=== PATIENT | male | born 1945 | race Caucasian/White ===

== ENCOUNTER 2018-06-26 22:41 | Emergency (ER) | payer MEDICARE, OTHER ==
[2018-06-27 01:16] LABS: ADD MAN DIFF? NO
[2018-06-27 01:18] LABS: WHITE BLOOD COUNT 7.7 10^3/ul (4.8-10.8)
[2018-06-27 01:18] LABS: BASOPHILS % 0.3 % (0.0-2.0); EOSINOPHILS # 0.1 10^3/ul (0.0-0.5); EOSINOPHILS % 0.6 % (0.0-7.0); HEMATOCRIT 38.6 % (42.0-52.0); LYMPHOCYTES # 2.3 10^3/ul (0.8-2.9); LYMPHOCYTES % 29.7 % (15.0-51.0); MEAN CORPUSCULAR HEMOGLOBIN 31.5 pg (29.0-33.0); MEAN CORPUSCULAR HGB CONC 36.3 g/dl (32.0-37.0); MEAN CORPUSCULAR VOLUME 86.9 fl (82.0-101.0); MEAN PLATELET VOLUME 10.6 fl (7.4-10.4); MONOCYTE # 0.8 10^3/ul (0.3-0.9); MONOCYTES % 9.7 % (0.0-11.0); NEUTROPHIL # 4.6 10^3/ul (1.6-7.5); NEUTROPHILS % 59.3 % (39.0-77.0); PLATELET COUNT 161 10^3/UL (140-415); RED BLOOD COUNT 4.44 10^6/ul (4.70-6.10); RED CELL DISTRIBUTION WIDTH 11.4 % (11.5-14.5)
[2018-06-27 01:36] LABS: ALANINE AMINOTRANSFERASE 23 IU/L (13-69); ALBUMIN 4.4 g/dl (3.3-4.9); ALBUMIN/GLOBULIN RATIO 1.18; ALKALINE PHOSPHATASE 73 IU/L (42-121); ANION GAP 15 (5-13); ASPARTATE AMINO TRANSFERASE 19 IU/L (15-46); BILIRUBIN,INDIRECT 0.4 mg/dl (0-1.1); BILIRUBIN,TOTAL 0.4 mg/dl (0.2-1.3); BLOOD UREA NITROGEN 6 mg/dl (7-20); CALCIUM 8.7 mg/dl (8.4-10.2); CARBON DIOXIDE 23 mmol/L (21-31); CHLORIDE 86 mmol/L (97-110); CREATININE 0.46 mg/dl (0.61-1.24); GLUCOSE 104 mg/dl (70-220); LIPASE 46 U/L (23-300); SODIUM 124 mmol/L (135-144); TOTAL PROTEIN 8.1 g/dl (6.1-8.1)
[2018-06-27 01:39] LABS: ADD UMIC YES; UR ASCORBIC ACID NEGATIVE (NEGATIVE); UR BILIRUBIN (Dip) NEGATIVE (NEGATIVE); UR BLOOD (Dip) 1+ mg/dL (NEGATIVE); UR CLARITY CLEAR (CLEAR); UR COLOR YELLOW (YELLOW); UR GLUCOSE (Dip) NEGATIVE (NEGATIVE); UR KETONES (Dip) 2+ mg/dL (NEGATIVE); UR LEUKOCYTE ESTERASE (Dip) NEGATIVE Leu/ul (NEGATIVE); UR NITRITE (Dip) NEGATIVE (NEGATIVE); UR RBC 3 /HPF (0-5); UR SPECIFIC GRAVITY (Dip) 1.017 (1.003-1.030); UR TOTAL PROTEIN (Dip) NEGATIVE (NEGATIVE); UR UROBILINOGEN (Dip) NEGATIVE (NEGATIVE); UR WBC 1 /HPF (0-5)
[2018-06-27 01:47] LABS: TROPONIN-I < 0.012 ng/ml (0.000-0.120)
[2018-06-27] MEDS: morphine 4 MG/ML VIAL IV (01:54)
[2018-06-27] MEDS: ONDANSETRON 4 MG INJ IV (01:54)
== END 2018-06-27 02:45 | disposition home or self-care (01) ==
LOC: E/R 22:41
DX: K80.50 Calculus of bile duct without cholangitis or cholecystitis without obstruction (principal); R10.9 Unspecified abdominal pain
CPT/HCPCS: 36415; 71045; 76705; 80053; 81001; 83690; 84484; 85025; 93005; 96374; 96375; 99285-25

== ENCOUNTER 2018-06-28 09:03 | Inpatient (IN) | payer MEDICARE, OTHER ==
[2018-06-28] MEDS ORDERED: ONDANSETRON 4 MG INJ IV (10:00)
[2018-06-28] MEDS: ONDANSETRON 4 MG INJ IV (10:33)
[2018-06-28] MEDS: morphine 4 MG/ML VIAL IV (10:33)
[2018-06-28 10:41] LABS: ADD MAN DIFF? NO
[2018-06-28] MEDS ORDERED: morphine 2 MG INJ IV (11:00)
[2018-06-28] MEDS ORDERED: NACL 0.9% 3 ML SYG IV (11:00)
[2018-06-28 11:05] LABS: BASOPHILS % 0.2 % (0.0-2.0); EOSINOPHILS % 0.5 % (0.0-7.0); HEMATOCRIT 38.9 % (42.0-52.0); HEMOGLOBIN 14.3 g/dl (14.0-18.0); LYMPHOCYTES # 1.4 10^3/ul (0.8-2.9); LYMPHOCYTES % 22.2 % (15.0-51.0); MEAN CORPUSCULAR HEMOGLOBIN 31.1 pg (29.0-33.0); MEAN CORPUSCULAR HGB CONC 36.8 g/dl (32.0-37.0); MEAN CORPUSCULAR VOLUME 84.6 fl (82.0-101.0); MEAN PLATELET VOLUME 10.9 fl (7.4-10.4); MONOCYTE # 0.7 10^3/ul (0.3-0.9); MONOCYTES % 11.4 % (0.0-11.0); NEUTROPHIL # 4.2 10^3/ul (1.6-7.5); NEUTROPHILS % 64.9 % (39.0-77.0); PLATELET COUNT 168 10^3/UL (140-415); RED CELL DISTRIBUTION WIDTH 11.4 % (11.5-14.5)
[2018-06-28 11:05] LABS: WHITE BLOOD COUNT 6.5 10^3/ul (4.8-10.8)
[2018-06-28 11:09] LABS: ALANINE AMINOTRANSFERASE 39 IU/L (13-69); ALBUMIN 4.3 g/dl (3.3-4.9); ALBUMIN/GLOBULIN RATIO 1.19; ALKALINE PHOSPHATASE 78 IU/L (42-121); ANION GAP 15 (5-13); ASPARTATE AMINO TRANSFERASE 32 IU/L (15-46); BILIRUBIN,INDIRECT 0.3 mg/dl (0-1.1); BILIRUBIN,TOTAL 0.3 mg/dl (0.2-1.3); BLOOD UREA NITROGEN 5 mg/dl (7-20); CALCIUM 8.7 mg/dl (8.4-10.2); CARBON DIOXIDE 22 mmol/L (21-31); CHLORIDE 85 mmol/L (97-110); CREATININE 0.48 mg/dl (0.61-1.24); GLUCOSE 108 mg/dl (70-220); LIPASE 60 U/L (23-300); POTASSIUM 3.8 mmol/L (3.5-5.1); SODIUM 122 mmol/L (135-144); TOTAL PROTEIN 7.9 g/dl (6.1-8.1)
[2018-06-28] MEDS: SOD CHLORIDE 0.9% 1,000 ML IV (11:13)
[2018-06-28 11:20] LABS: ADD UMIC YES; UR ASCORBIC ACID NEGATIVE (NEGATIVE); UR BILIRUBIN (Dip) NEGATIVE (NEGATIVE); UR BLOOD (Dip) 1+ mg/dL (NEGATIVE); UR CLARITY CLEAR (CLEAR); UR COLOR YELLOW (YELLOW); UR GLUCOSE (Dip) NEGATIVE (NEGATIVE); UR KETONES (Dip) 2+ mg/dL (NEGATIVE); UR LEUKOCYTE ESTERASE (Dip) NEGATIVE Leu/ul (NEGATIVE); UR NITRITE (Dip) NEGATIVE (NEGATIVE); UR RBC 2 /HPF (0-5); UR SPECIFIC GRAVITY (Dip) 1.015 (1.003-1.030); UR TOTAL PROTEIN (Dip) NEGATIVE (NEGATIVE); UR UROBILINOGEN (Dip) 1+ mg/dL (NEGATIVE); UR WBC 0 /HPF (0-5)
[2018-06-28 11:21] LABS: TROPONIN-I < 0.012 ng/ml (0.000-0.120)
[2018-06-28 11:47] LABS: PHENYTOIN (DILANTIN) < 3.0 ug/ml (10.0-20.0)
[2018-06-28 11:57] LABS: SODIUM,URINE RANDOM 72 mmol/L (30-90)
[2018-06-28 12:36] LABS: CREATININE,URINE RANDOM 107.74 mg/dl (20-370)
[2018-06-28 12:47] LABS: FREE T4 (FREE THYROXINE) 1.36 ng/dl (0.78-2.44)
[2018-06-28 13:48] LABS: OSMOLALITY 243 mOsm/kg (280-295)
[2018-06-28 13:56] LABS: OSMOLALITY,URINE 467 mOsm/kg (250-1200)
[2018-06-28] MEDS: PHENYTOIN 1,250 MG in SOD CHLORIDE 0.9% 150 ML IV (14:09)
[2018-06-28 15:00] LABS: SODIUM 122 mmol/L (135-144)
[2018-06-28] MEDS: IOHEXOL 14.3 MG(I)/ML (ADULT) BTL PO (17:22)
[2018-06-28] MEDS: ACETAMINOPHEN 325 MG TAB PO (17:27)
[2018-06-28 18:29] LABS: SODIUM 126 mmol/L (135-144)
[2018-06-28 18:36] LABS: URIC ACID 3.6 mg/dl (3.1-7.9)
[2018-06-28] MEDS: PHENYTOIN 100 MG INJ IV (21:44)
[2018-06-28] MEDS: HYDROCODONE/APAP (5/325) TAB PO (21:54)
[2018-06-28 22:30] LABS: SODIUM 124 mmol/L (135-144)
[2018-06-29] MEDS: SOD CHLORIDE 0.9% 1,000 ML IV ×2 (04:30→06:36)
[2018-06-29] MEDS: PHENYTOIN 100 MG INJ IV ×3 (05:15→21:17)
[2018-06-29 06:13] LABS: WHITE BLOOD COUNT 7.4 10^3/ul (4.8-10.8)
[2018-06-29 06:13] LABS: ADD MAN DIFF? NO; BASOPHILS % 0.3 % (0.0-2.0); EOSINOPHILS # 0.1 10^3/ul (0.0-0.5); EOSINOPHILS % 0.7 % (0.0-7.0); HEMATOCRIT 38.5 % (42.0-52.0); HEMOGLOBIN 14.2 g/dl (14.0-18.0); LYMPHOCYTES % 26.6 % (15.0-51.0); MEAN CORPUSCULAR HEMOGLOBIN 31.8 pg (29.0-33.0); MEAN CORPUSCULAR HGB CONC 36.9 g/dl (32.0-37.0); MEAN CORPUSCULAR VOLUME 86.1 fl (82.0-101.0); MEAN PLATELET VOLUME 10.8 fl (7.4-10.4); MONOCYTES % 13.1 % (0.0-11.0); NEUTROPHIL # 4.4 10^3/ul (1.6-7.5); NEUTROPHILS % 58.8 % (39.0-77.0); PLATELET COUNT 161 10^3/UL (140-415); RED BLOOD COUNT 4.47 10^6/ul (4.70-6.10); RED CELL DISTRIBUTION WIDTH 11.7 % (11.5-14.5)
[2018-06-29 06:34] LABS: MAGNESIUM 2.1 mg/dl (1.7-2.5)
[2018-06-29 06:34] LABS: PHOSPHORUS 3.1 mg/dl (2.5-4.9)
[2018-06-29 06:39] LABS: ALANINE AMINOTRANSFERASE 39 IU/L (13-69); ALBUMIN 3.9 g/dl (3.3-4.9); ALBUMIN/GLOBULIN RATIO 1.21; ALKALINE PHOSPHATASE 80 IU/L (42-121); ANION GAP 14 (5-13); ASPARTATE AMINO TRANSFERASE 30 IU/L (15-46); BILIRUBIN,INDIRECT 0.2 mg/dl (0-1.1); BILIRUBIN,TOTAL 0.2 mg/dl (0.2-1.3); BLOOD UREA NITROGEN 5 mg/dl (7-20); CALCIUM 8.5 mg/dl (8.4-10.2); CARBON DIOXIDE 25 mmol/L (21-31); CHLORIDE 91 mmol/L (97-110); CREATININE 0.49 mg/dl (0.61-1.24); GLUCOSE 89 mg/dl (70-220); SODIUM 130 mmol/L (135-144); TOTAL PROTEIN 7.1 g/dl (6.1-8.1)
[2018-06-29 06:42] LABS: PHENYTOIN (DILANTIN) 19.6 ug/ml (10.0-20.0)
[2018-06-29] MEDS ORDERED: DESFLURANE 15 MIN (07:00)
[2018-06-29 11:16] LABS: CHOLESTEROL 187 mg/dl (100-200)
[2018-06-29 11:16] LABS: CHOL/HDL RATIO 3.6 RATIO; HDL CHOLESTEROL 51 mg/dl (31-75); LDL CHOLESTEROL,CALCULATED 119 mg/dl; TRIGLYCERIDES 84 mg/dl (0-149)
[2018-06-29 12:01] LABS: ANION GAP 16 (5-13); BLOOD UREA NITROGEN 5 mg/dl (7-20); CALCIUM 8.6 mg/dl (8.4-10.2); CARBON DIOXIDE 22 mmol/L (21-31); CHLORIDE 93 mmol/L (97-110); CREATININE 0.44 mg/dl (0.61-1.24); GLUCOSE 89 mg/dl (70-220); POTASSIUM 4.2 mmol/L (3.5-5.1); SODIUM 131 mmol/L (135-144)
[2018-06-29 12:31] LABS: PROSTATE SPECIFIC ANTIGEN 8.4 ng/ml (0.0-4.0)
[2018-06-29] MEDS ORDERED: ROPIVACAINE 0.5 % 30 ML VIAL (16:24)
[2018-06-29] MEDS ORDERED: HYDROmorphONE 1 MG/5 ML IV SYRINGE IV (16:30)
[2018-06-29] MEDS ORDERED: DIPHENHYDRAMINE 50 MG INJ IV (16:30)
[2018-06-29] MEDS ORDERED: BUPIVACAINE 0.5%/EPI (SDV) 30 ML INJ (16:40)
[2018-06-29] MEDS ORDERED: LIDOCAINE 1% (MPF) 30 ML INJ (16:40)
[2018-06-29] MEDS ORDERED: MIDAZOLAM 1 MG/ML 2 ML INJ (16:53)
[2018-06-29] MEDS ORDERED: METOCLOPRAMIDE 10 MG INJ (16:53)
[2018-06-29] MEDS ORDERED: ONDANSETRON 4 MG INJ (17:07)
[2018-06-29] MEDS ORDERED: NEOSTIGMINE 3 MG/3 ML SYRINGE (17:07)
[2018-06-29] MEDS ORDERED: CEFAZOLIN 1 GM INJ (17:07)
[2018-06-29] MEDS ORDERED: EPHEDrine 50 MG INJ (17:36)
[2018-06-29] MEDS ORDERED: PROPOFOL 20 ML (17:54)
[2018-06-29] MEDS ORDERED: ROCURONIUM 50 MG INJ ×2 (17:54)
[2018-06-29] MEDS ORDERED: GLYCOPYRROLATE 1 MG INJ (18:37)
[2018-06-29] MEDS: MEPERIDINE 25 MG INJ IV (18:57)
[2018-06-29] MEDS: ONDANSETRON 4 MG INJ IV (18:57)
[2018-06-29] MEDS: HYDROmorphONE 1 MG/5 ML IV SYRINGE IV ×4 (19:28→20:02)
[2018-06-29] MEDS: GEMFIBROZIL 600 MG TAB PO (21:16)
[2018-06-29] MEDS: morphine SULFATE/PF (2 MG/2 ML) SYG IV (22:24)
[2018-06-30 05:41] LABS: ADD MAN DIFF? NO
[2018-06-30 05:45] LABS: BASOPHILS % 0.1 % (0.0-2.0); HEMATOCRIT 39.9 % (42.0-52.0); HEMOGLOBIN 14.2 g/dl (14.0-18.0); LYMPHOCYTES # 1.1 10^3/ul (0.8-2.9); LYMPHOCYTES % 7.5 % (15.0-51.0); MEAN CORPUSCULAR HEMOGLOBIN 31.2 pg (29.0-33.0); MEAN CORPUSCULAR HGB CONC 35.6 g/dl (32.0-37.0); MEAN CORPUSCULAR VOLUME 87.7 fl (82.0-101.0); MEAN PLATELET VOLUME 11.2 fl (7.4-10.4); MONOCYTE # 1.4 10^3/ul (0.3-0.9); MONOCYTES % 10.1 % (0.0-11.0); NEUTROPHIL # 11.5 10^3/ul (1.6-7.5); NEUTROPHILS % 81.7 % (39.0-77.0); PLATELET COUNT 182 10^3/UL (140-415); RED BLOOD COUNT 4.55 10^6/ul (4.70-6.10); RED CELL DISTRIBUTION WIDTH 12.2 % (11.5-14.5)
[2018-06-30 05:45] LABS: WHITE BLOOD COUNT 14.1 10^3/ul (4.8-10.8)
[2018-06-30 06:14] LABS: PHOSPHORUS 2.8 mg/dl (2.5-4.9)
[2018-06-30 06:14] LABS: MAGNESIUM 1.9 mg/dl (1.7-2.5)
[2018-06-30 06:23] LABS: ALANINE AMINOTRANSFERASE 66 IU/L (13-69); ALBUMIN 4.1 g/dl (3.3-4.9); ALBUMIN/GLOBULIN RATIO 1.24; ALKALINE PHOSPHATASE 87 IU/L (42-121); ANION GAP 15 (5-13); ASPARTATE AMINO TRANSFERASE 81 IU/L (15-46); BILIRUBIN,INDIRECT 0.2 mg/dl (0-1.1); BILIRUBIN,TOTAL 0.2 mg/dl (0.2-1.3); BLOOD UREA NITROGEN 4 mg/dl (7-20); CALCIUM 8.4 mg/dl (8.4-10.2); CARBON DIOXIDE 19 mmol/L (21-31); CHLORIDE 96 mmol/L (97-110); CREATININE 0.46 mg/dl (0.61-1.24); GLUCOSE 117 mg/dl (70-220); POTASSIUM 3.7 mmol/L (3.5-5.1); SODIUM 130 mmol/L (135-144); TOTAL PROTEIN 7.4 g/dl (6.1-8.1)
[2018-06-30] MEDS: LEVOTHYROXINE 150 MCG TAB PO (06:50)
[2018-06-30] MEDS: PHENYTOIN 100 MG INJ IV ×3 (06:50→21:11)
[2018-06-30] MEDS: GEMFIBROZIL 600 MG TAB PO ×2 (10:31→21:11)
[2018-06-30] MEDS: HYDROCODONE/APAP (5/325) TAB PO ×2 (10:32→22:03)
[2018-06-30] MEDS: ONDANSETRON 4 MG INJ IV (13:35)
[2018-06-30] MEDS: BISACODYL (EC) 5 MG TAB PO (18:25)
[2018-06-30] MEDS: TAMSULOSIN (SR) 0.4 MG CAP PO (21:11)
[2018-06-30] MEDS: POLYETHYLENE GLYCOL 17 GM PACKET PO (21:11)
[2018-07-01 05:56] LABS: ADD MAN DIFF? NO
[2018-07-01 06:00] LABS: WHITE BLOOD COUNT 21.1 10^3/ul (4.8-10.8)
[2018-07-01 06:00] LABS: ABNORMAL IP MESSAGE 1; BASOPHIL # 0.1 10^3/ul (0.0-0.1); BASOPHILS % 0.2 % (0.0-2.0); EOSINOPHILS % 0.1 % (0.0-7.0); HEMATOCRIT 46.1 % (42.0-52.0); HEMOGLOBIN 16.5 g/dl (14.0-18.0); LYMPHOCYTES # 1.6 10^3/ul (0.8-2.9); LYMPHOCYTES % 7.5 % (15.0-51.0); MEAN CORPUSCULAR HEMOGLOBIN 31.2 pg (29.0-33.0); MEAN CORPUSCULAR HGB CONC 35.8 g/dl (32.0-37.0); MEAN CORPUSCULAR VOLUME 87.1 fl (82.0-101.0); MEAN PLATELET VOLUME 10.7 fl (7.4-10.4); MONOCYTE # 2.1 10^3/ul (0.3-0.9); MONOCYTES % 9.9 % (0.0-11.0); NEUTROPHIL # 17.2 10^3/ul (1.6-7.5); NEUTROPHILS % 81.6 % (39.0-77.0); PLATELET COUNT 214 10^3/UL (140-415); POSITIVE DIFF @See below; RED BLOOD COUNT 5.29 10^6/ul (4.70-6.10); RED CELL DISTRIBUTION WIDTH 12.6 % (11.5-14.5)
[2018-07-01] MEDS: PHENYTOIN 100 MG INJ IV ×3 (06:02→21:19)
[2018-07-01] MEDS: LEVOTHYROXINE 150 MCG TAB PO (06:02)
[2018-07-01] MEDS: HYDROCODONE/APAP (5/325) TAB PO (06:02)
[2018-07-01 06:29] LABS: ALANINE AMINOTRANSFERASE 57 IU/L (13-69); ALBUMIN 4.4 g/dl (3.3-4.9); ALBUMIN/GLOBULIN RATIO 1.12; ALKALINE PHOSPHATASE 96 IU/L (42-121); ANION GAP 16 (5-13); ASPARTATE AMINO TRANSFERASE 56 IU/L (15-46); BILIRUBIN,INDIRECT 0.3 mg/dl (0-1.1); BILIRUBIN,TOTAL 0.3 mg/dl (0.2-1.3); BLOOD UREA NITROGEN 14 mg/dl (7-20); CARBON DIOXIDE 21 mmol/L (21-31); CHLORIDE 92 mmol/L (97-110); CREATININE 1.65 mg/dl (0.61-1.24); GLUCOSE 159 mg/dl (70-220); SODIUM 129 mmol/L (135-144); TOTAL PROTEIN 8.3 g/dl (6.1-8.1)
[2018-07-01 07:50] LABS: MAGNESIUM 2.2 mg/dl (1.7-2.5)
[2018-07-01 07:50] LABS: PHOSPHORUS 3.2 mg/dl (2.5-4.9)
[2018-07-01] MEDS: ACETAMINOPHEN 325 MG TAB PO (08:53)
[2018-07-01] MEDS: GEMFIBROZIL 600 MG TAB PO ×2 (08:53→20:29)
[2018-07-01] MEDS: POLYETHYLENE GLYCOL 17 GM PACKET PO ×2 (08:54→20:29)
[2018-07-01] MEDS: SOD CHLORIDE 0.9% 1,000 ML IV ×2 (08:55→21:50)
[2018-07-01] MEDS: morphine LIQ (10 MG/5 ML) CUP PO (11:26)
[2018-07-01] MEDS: SOD CHLORIDE 0.9% 500 ML IV ×2 (11:28→18:39)
[2018-07-01 13:31] LABS: ADD MAN DIFF? NO
[2018-07-01 13:34] LABS: WHITE BLOOD COUNT 19.2 10^3/ul (4.8-10.8)
[2018-07-01 13:34] LABS: ABNORMAL IP MESSAGE 1; BASOPHIL # 0.1 10^3/ul (0.0-0.1); BASOPHILS % 0.3 % (0.0-2.0); EOSINOPHILS # 0.1 10^3/ul (0.0-0.5); EOSINOPHILS % 0.4 % (0.0-7.0); HEMATOCRIT 44.2 % (42.0-52.0); HEMOGLOBIN 15.6 g/dl (14.0-18.0); LYMPHOCYTES # 1.5 10^3/ul (0.8-2.9); LYMPHOCYTES % 7.7 % (15.0-51.0); MEAN CORPUSCULAR HEMOGLOBIN 30.9 pg (29.0-33.0); MEAN CORPUSCULAR HGB CONC 35.3 g/dl (32.0-37.0); MEAN CORPUSCULAR VOLUME 87.5 fl (82.0-101.0); MEAN PLATELET VOLUME 10.6 fl (7.4-10.4); MONOCYTE # 1.7 10^3/ul (0.3-0.9); MONOCYTES % 8.6 % (0.0-11.0); NEUTROPHIL # 15.8 10^3/ul (1.6-7.5); NEUTROPHILS % 82.3 % (39.0-77.0); PLATELET COUNT 205 10^3/UL (140-415); POSITIVE DIFF @See below; RED BLOOD COUNT 5.05 10^6/ul (4.70-6.10); RED CELL DISTRIBUTION WIDTH 12.5 % (11.5-14.5)
[2018-07-01] MEDS: PIPER-TAZO 3.375 GM IV (PMX) 100 ML IVPB ×2 (13:38→17:43)
[2018-07-01 14:30] LABS: ALANINE AMINOTRANSFERASE 62 IU/L (13-69); ALBUMIN 3.8 g/dl (3.3-4.9); ALBUMIN/GLOBULIN RATIO 1.18; ALKALINE PHOSPHATASE 78 IU/L (42-121); ANION GAP 16 (5-13); ASPARTATE AMINO TRANSFERASE 40 IU/L (15-46); BILIRUBIN,INDIRECT 0.2 mg/dl (0-1.1); BILIRUBIN,TOTAL 0.2 mg/dl (0.2-1.3); BLOOD UREA NITROGEN 18 mg/dl (7-20); CALCIUM 9.4 mg/dl (8.4-10.2); CARBON DIOXIDE 17 mmol/L (21-31); CHLORIDE 96 mmol/L (97-110); CREATININE 1.55 mg/dl (0.61-1.24); GLUCOSE 153 mg/dl (70-220); POTASSIUM 3.8 mmol/L (3.5-5.1); SODIUM 129 mmol/L (135-144)
[2018-07-01 14:34] LABS: LACTIC ACID 1.5 mmol/L (0.5-2.0)
[2018-07-01 17:34] LABS: ADD UMIC YES; UR ASCORBIC ACID NEGATIVE (NEGATIVE); UR BACTERIA FEW /HPF (NONE SEEN); UR BILIRUBIN (Dip) NEGATIVE (NEGATIVE); UR BLOOD (Dip) 1+ mg/dL (NEGATIVE); UR CLARITY CLOUDY (CLEAR); UR COLOR AMBER (YELLOW); UR GLUCOSE (Dip) NEGATIVE (NEGATIVE); UR HYALINE CAST FEW /HPF (NONE SEEN); UR KETONES (Dip) 1+ mg/dL (NEGATIVE); UR LEUKOCYTE ESTERASE (Dip) TRACE Leu/ul (NEGATIVE); UR MUCUS MODERATE /HPF (NONE SEEN); UR NITRITE (Dip) NEGATIVE (NEGATIVE); UR NONSQUAMOUS EPITHELIAL CELL 2 /HPF (NONE SEEN); UR RBC 13 /HPF (0-5); UR SPECIFIC GRAVITY (Dip) 1.035 (1.003-1.030); UR SQUAMOUS EPITHELIAL CELL FEW /HPF (FEW); UR TOTAL PROTEIN (Dip) 2+ mg/dl (NEGATIVE); UR UROBILINOGEN (Dip) NEGATIVE (NEGATIVE); UR WBC 32 /HPF (0-5)
[2018-07-01 18:10] LABS: SODIUM,URINE RANDOM 55 mmol/L (30-90)
[2018-07-01 18:10] LABS: CREATININE,URINE RANDOM 344.48 mg/dl (20-370)
[2018-07-01] MEDS: TAMSULOSIN (SR) 0.4 MG CAP PO (20:28)
[2018-07-02] MEDS: PIPER-TAZO 3.375 GM IV (PMX) 100 ML IVPB ×5 (00:02→23:29)
[2018-07-02 05:26] LABS: ADD MAN DIFF? NO
[2018-07-02 05:31] LABS: WHITE BLOOD COUNT 16.3 10^3/ul (4.8-10.8)
[2018-07-02 05:31] LABS: BASOPHILS % 0.2 % (0.0-2.0); EOSINOPHILS # 0.2 10^3/ul (0.0-0.5); EOSINOPHILS % 1.2 % (0.0-7.0); HEMATOCRIT 41.6 % (42.0-52.0); HEMOGLOBIN 14.7 g/dl (14.0-18.0); LYMPHOCYTES # 1.7 10^3/ul (0.8-2.9); LYMPHOCYTES % 10.2 % (15.0-51.0); MEAN CORPUSCULAR HEMOGLOBIN 31.4 pg (29.0-33.0); MEAN CORPUSCULAR HGB CONC 35.3 g/dl (32.0-37.0); MEAN CORPUSCULAR VOLUME 88.9 fl (82.0-101.0); MEAN PLATELET VOLUME 10.8 fl (7.4-10.4); MONOCYTE # 1.4 10^3/ul (0.3-0.9); MONOCYTES % 8.8 % (0.0-11.0); NEUTROPHIL # 12.9 10^3/ul (1.6-7.5); NEUTROPHILS % 79.1 % (39.0-77.0); PLATELET COUNT 206 10^3/UL (140-415); RED BLOOD COUNT 4.68 10^6/ul (4.70-6.10); RED CELL DISTRIBUTION WIDTH 12.9 % (11.5-14.5)
[2018-07-02] MEDS: PHENYTOIN 100 MG INJ IV ×3 (05:52→21:30)
[2018-07-02 05:55] LABS: ANION GAP 16 (5-13); BLOOD UREA NITROGEN 18 mg/dl (7-20); CALCIUM 8.8 mg/dl (8.4-10.2); CARBON DIOXIDE 19 mmol/L (21-31); CHLORIDE 98 mmol/L (97-110); CREATININE 0.88 mg/dl (0.61-1.24); GLUCOSE 119 mg/dl (70-220); MAGNESIUM 2.2 mg/dl (1.7-2.5); PHOSPHORUS 2.8 mg/dl (2.5-4.9); POTASSIUM 3.6 mmol/L (3.5-5.1); SODIUM 133 mmol/L (135-144)
[2018-07-02 05:59] LABS: PHENYTOIN (DILANTIN) 14.4 ug/ml (10.0-20.0)
[2018-07-02] MEDS: LEVOTHYROXINE 150 MCG TAB PO (07:00)
[2018-07-02] MEDS: GEMFIBROZIL 600 MG TAB PO ×2 (08:19→21:30)
[2018-07-02] MEDS: POLYETHYLENE GLYCOL 17 GM PACKET PO ×2 (08:19→21:31)
[2018-07-02] MEDS: SOD CHLORIDE 0.9% 1,000 ML IV (11:10)
[2018-07-02 15:31] LABS: CREATININE, RANDOM URINE 293 mg/dL (20-320); MICROALBUMIN 5.1 mg/dL; MICROALBUMIN/CREATININE RATIO 17 (<30)
[2018-07-02] MEDS: TAMSULOSIN (SR) 0.4 MG CAP PO (21:30)
[2018-07-03] MEDS: SOD CHLORIDE 0.9% 1,000 ML IV ×4 (00:30→19:10)
[2018-07-03] MEDS: ACETAMINOPHEN 325 MG TAB PO ×2 (04:08→09:04)
[2018-07-03] MEDS: LEVOTHYROXINE 150 MCG TAB PO (06:05)
[2018-07-03] MEDS: PIPER-TAZO 3.375 GM IV (PMX) 100 ML IVPB ×3 (06:05→17:59)
[2018-07-03] MEDS: PHENYTOIN 100 MG INJ IV ×3 (06:05→21:31)
[2018-07-03 06:06] LABS: ADD MAN DIFF? NO
[2018-07-03 06:18] LABS: WHITE BLOOD COUNT 11.4 10^3/ul (4.8-10.8)
[2018-07-03 06:18] LABS: BASOPHILS % 0.3 % (0.0-2.0); EOSINOPHILS # 0.4 10^3/ul (0.0-0.5); EOSINOPHILS % 3.7 % (0.0-7.0); HEMATOCRIT 37.9 % (42.0-52.0); HEMOGLOBIN 13.4 g/dl (14.0-18.0); LYMPHOCYTES # 1.4 10^3/ul (0.8-2.9); LYMPHOCYTES % 12.7 % (15.0-51.0); MEAN CORPUSCULAR HEMOGLOBIN 31.6 pg (29.0-33.0); MEAN CORPUSCULAR HGB CONC 35.4 g/dl (32.0-37.0); MEAN CORPUSCULAR VOLUME 89.4 fl (82.0-101.0); MEAN PLATELET VOLUME 10.2 fl (7.4-10.4); MONOCYTE # 1.4 10^3/ul (0.3-0.9); MONOCYTES % 11.9 % (0.0-11.0); NEUTROPHIL # 8.1 10^3/ul (1.6-7.5); NEUTROPHILS % 70.6 % (39.0-77.0); PLATELET COUNT 180 10^3/UL (140-415); RED BLOOD COUNT 4.24 10^6/ul (4.70-6.10); RED CELL DISTRIBUTION WIDTH 12.9 % (11.5-14.5)
[2018-07-03 06:40] LABS: MAGNESIUM 2.1 mg/dl (1.7-2.5)
[2018-07-03 06:47] LABS: PHOSPHORUS 2.1 mg/dl (2.5-4.9)
[2018-07-03 06:56] LABS: ALANINE AMINOTRANSFERASE 30 IU/L (13-69); ALBUMIN 3.1 g/dl (3.3-4.9); ALBUMIN/GLOBULIN RATIO 1.06; ALKALINE PHOSPHATASE 61 IU/L (42-121); ANION GAP 9 (5-13); ASPARTATE AMINO TRANSFERASE 17 IU/L (15-46); BILIRUBIN,INDIRECT 0.2 mg/dl (0-1.1); BILIRUBIN,TOTAL 0.2 mg/dl (0.2-1.3); BLOOD UREA NITROGEN 13 mg/dl (7-20); CALCIUM 8.5 mg/dl (8.4-10.2); CARBON DIOXIDE 25 mmol/L (21-31); CHLORIDE 99 mmol/L (97-110); CREATININE 0.58 mg/dl (0.61-1.24); GLUCOSE 116 mg/dl (70-220); POTASSIUM 3.3 mmol/L (3.5-5.1); SODIUM 133 mmol/L (135-144)
[2018-07-03] MEDS: POTASSIUM CHLORIDE (SR) 20 MEQ TAB PO (07:41)
[2018-07-03] MEDS: NEUTRA-PHOS 250 MG PACKET PO (08:00)
[2018-07-03] MEDS: POLYETHYLENE GLYCOL 17 GM PACKET PO ×2 (09:00→21:00)
[2018-07-03] MEDS: GEMFIBROZIL 600 MG TAB PO ×2 (09:04→21:31)
[2018-07-03] MEDS: ENOXAPARIN 40 MG/0.4 ML SYG SC (09:11)
[2018-07-03] MEDS: TAMSULOSIN (SR) 0.4 MG CAP PO (21:31)
[2018-07-04] MEDS: PIPER-TAZO 3.375 GM IV (PMX) 100 ML IVPB ×2 (00:14→06:03)
[2018-07-04] MEDS: HYDROCODONE/APAP (5/325) TAB PO ×2 (04:57→13:55)
[2018-07-04 05:25] LABS: ADD MAN DIFF? NO
[2018-07-04 05:29] LABS: BASOPHILS % 0.3 % (0.0-2.0); EOSINOPHILS # 0.4 10^3/ul (0.0-0.5); EOSINOPHILS % 4.5 % (0.0-7.0); HEMATOCRIT 37.2 % (42.0-52.0); HEMOGLOBIN 13.1 g/dl (14.0-18.0); LYMPHOCYTES # 2.3 10^3/ul (0.8-2.9); LYMPHOCYTES % 25.2 % (15.0-51.0); MEAN CORPUSCULAR HEMOGLOBIN 31.6 pg (29.0-33.0); MEAN CORPUSCULAR HGB CONC 35.2 g/dl (32.0-37.0); MEAN CORPUSCULAR VOLUME 89.6 fl (82.0-101.0); MEAN PLATELET VOLUME 9.9 fl (7.4-10.4); MONOCYTE # 1.1 10^3/ul (0.3-0.9); MONOCYTES % 12.1 % (0.0-11.0); NEUTROPHIL # 5.1 10^3/ul (1.6-7.5); NEUTROPHILS % 57.1 % (39.0-77.0); PLATELET COUNT 195 10^3/UL (140-415); RED BLOOD COUNT 4.15 10^6/ul (4.70-6.10); RED CELL DISTRIBUTION WIDTH 12.8 % (11.5-14.5)
[2018-07-04 05:54] LABS: ALANINE AMINOTRANSFERASE 22 IU/L (13-69); ALBUMIN 3.3 g/dl (3.3-4.9); ALBUMIN/GLOBULIN RATIO 1.03; ALKALINE PHOSPHATASE 63 IU/L (42-121); ANION GAP 8 (5-13); ASPARTATE AMINO TRANSFERASE 21 IU/L (15-46); BILIRUBIN,INDIRECT 0.2 mg/dl (0-1.1); BILIRUBIN,TOTAL 0.2 mg/dl (0.2-1.3); BLOOD UREA NITROGEN 10 mg/dl (7-20); CALCIUM 8.3 mg/dl (8.4-10.2); CARBON DIOXIDE 26 mmol/L (21-31); CHLORIDE 102 mmol/L (97-110); CREATININE 0.57 mg/dl (0.61-1.24); GLUCOSE 114 mg/dl (70-220); POTASSIUM 3.4 mmol/L (3.5-5.1); SODIUM 136 mmol/L (135-144); TOTAL PROTEIN 6.5 g/dl (6.1-8.1)
[2018-07-04] MEDS: PHENAZOPYRIDINE 200 MG TAB PO ×3 (06:03→22:04)
[2018-07-04] MEDS: PHENYTOIN 100 MG INJ IV ×3 (06:03→22:05)
[2018-07-04] MEDS: LEVOTHYROXINE 150 MCG TAB PO (06:06)
[2018-07-04 08:17] LABS: ADD UMIC YES; UR ASCORBIC ACID NEGATIVE (NEGATIVE); UR BILIRUBIN (Dip) NEGATIVE (NEGATIVE); UR BLOOD (Dip) 1+ mg/dL (NEGATIVE); UR CLARITY CLOUDY (CLEAR); UR COLOR YELLOW (YELLOW); UR GLUCOSE (Dip) NEGATIVE (NEGATIVE); UR KETONES (Dip) TRACE mg/dL (NEGATIVE); UR LEUKOCYTE ESTERASE (Dip) NEGATIVE Leu/ul (NEGATIVE); UR NITRITE (Dip) NEGATIVE (NEGATIVE); UR RBC 10 /HPF (0-5); UR SPECIFIC GRAVITY (Dip) 1.027 (1.003-1.030); UR TOTAL PROTEIN (Dip) 1+ mg/dl (NEGATIVE); UR UROBILINOGEN (Dip) NEGATIVE (NEGATIVE); UR WBC 9 /HPF (0-5)
[2018-07-04] MEDS: POLYETHYLENE GLYCOL 17 GM PACKET PO (09:00)
[2018-07-04] MEDS: POTASSIUM CHLORIDE (SR) 20 MEQ TAB PO (09:03)
[2018-07-04] MEDS: NEUTRA-PHOS 250 MG PACKET PO (09:04)
[2018-07-04] MEDS: GEMFIBROZIL 600 MG TAB PO ×2 (09:04→22:04)
[2018-07-04] MEDS: ENOXAPARIN 40 MG/0.4 ML SYG SC (09:17)
[2018-07-04] MEDS: ACETAMINOPHEN 325 MG TAB PO (09:20)
[2018-07-04] MEDS: SACCHAROMYCES BOULARDII 250 MG CAP PO ×2 (13:37→22:04)
[2018-07-04] MEDS: TAMSULOSIN (SR) 0.4 MG CAP PO ×2 (13:37→22:04)
[2018-07-05 06:21] LABS: ADD MAN DIFF? NO
[2018-07-05] MEDS: PHENYTOIN 100 MG INJ IV ×2 (06:22→13:14)
[2018-07-05] MEDS: LEVOTHYROXINE 150 MCG TAB PO (06:22)
[2018-07-05 06:30] LABS: WHITE BLOOD COUNT 9.1 10^3/ul (4.8-10.8)
[2018-07-05 06:30] LABS: BASOPHILS % 0.3 % (0.0-2.0); EOSINOPHILS # 0.3 10^3/ul (0.0-0.5); EOSINOPHILS % 3.7 % (0.0-7.0); HEMOGLOBIN 12.6 g/dl (14.0-18.0); LYMPHOCYTES # 2.1 10^3/ul (0.8-2.9); LYMPHOCYTES % 23.1 % (15.0-51.0); MEAN CORPUSCULAR HEMOGLOBIN 31.5 pg (29.0-33.0); MEAN PLATELET VOLUME 10.1 fl (7.4-10.4); MONOCYTES % 10.9 % (0.0-11.0); NEUTROPHIL # 5.6 10^3/ul (1.6-7.5); NEUTROPHILS % 61.2 % (39.0-77.0); PLATELET COUNT 209 10^3/UL (140-415); RED CELL DISTRIBUTION WIDTH 12.4 % (11.5-14.5)
[2018-07-05 06:53] LABS: ANION GAP 11 (5-13); BLOOD UREA NITROGEN 5 mg/dl (7-20); CARBON DIOXIDE 28 mmol/L (21-31); CHLORIDE 95 mmol/L (97-110); CREATININE 0.44 mg/dl (0.61-1.24); GLUCOSE 95 mg/dl (70-220); MAGNESIUM 1.9 mg/dl (1.7-2.5); PHOSPHORUS 2.2 mg/dl (2.5-4.9); POTASSIUM 3.6 mmol/L (3.5-5.1); SODIUM 134 mmol/L (135-144)
[2018-07-05] MEDS: NEUTRA-PHOS 250 MG PACKET PO (09:05)
[2018-07-05] MEDS: PHENAZOPYRIDINE 200 MG TAB PO ×2 (09:05→13:10)
[2018-07-05] MEDS: GEMFIBROZIL 600 MG TAB PO (09:05)
[2018-07-05] MEDS: TAMSULOSIN (SR) 0.4 MG CAP PO (09:06)
[2018-07-05] MEDS: SACCHAROMYCES BOULARDII 250 MG CAP PO (09:06)
[2018-07-05] MEDS: ENOXAPARIN 40 MG/0.4 ML SYG SC (09:09)
[2018-07-05] MEDS: ACETAMINOPHEN 325 MG TAB PO (11:53)
== END 2018-07-05 18:50 | disposition home health service (06) | DRG 418 ==
LOC: E/R 09:03 → 2NE 09:55
PROC: 0FT44ZZ Resection of Gallbladder, Percutaneous Endoscopic Approach (ICD-10-PCS; principal; 2018-06-29 16:00)
PROC: 0FB04ZX Excision of Liver, Percutaneous Endoscopic Approach, Diagnostic (ICD-10-PCS; 2018-06-29 16:00)
DX: K80.00 Calculus of gallbladder with acute cholecystitis without obstruction (principal); E22.2 Syndrome of inappropriate secretion of antidiuretic hormone; N17.9 Acute kidney failure, unspecified; K56.7 Ileus, unspecified; R65.10 Systemic inflammatory response syndrome (SIRS) of non-infectious origin without acute organ dysfunction; G40.909 Epilepsy, unspecified, not intractable, without status epilepticus; E03.9 Hypothyroidism, unspecified; E78.5 Hyperlipidemia, unspecified; N40.0 Benign prostatic hyperplasia without lower urinary tract symptoms; K76.9 Liver disease, unspecified
CPT/HCPCS: 36415; 71045; 74176; 76705; 78226; 80048; 80053; 80061; 80185; 81001; 81003; 82043; 82533; 83605; 83690; 83735; 83930; 83935; 84100; 84153; 84154; 84155; 84295; 84300; 84439; 84443; 84484; 84560; 85025; 87045; 87086; 88304; 88307; 88313; 93005; 96374; 96375; 99285-25

== ENCOUNTER 2018-07-08 07:10 | Emergency (ER) | payer MEDICARE, OTHER ==
[2018-07-08] MEDS: SOD CHLORIDE 0.9% 100 ML (07:49)
[2018-07-08] MEDS: IODIXANOL LOCM 100 ML BTL (07:49)
[2018-07-08 08:26] LABS: ADD MAN DIFF? NO
[2018-07-08] MEDS: ONDANSETRON 4 MG INJ IV ×3 (08:28→09:36)
[2018-07-08] MEDS: morphine 4 MG/ML VIAL IV (08:28)
[2018-07-08 08:41] LABS: WHITE BLOOD COUNT 9.1 10^3/ul (4.8-10.8)
[2018-07-08 08:41] LABS: BASOPHILS % 0.4 % (0.0-2.0); EOSINOPHILS # 0.2 10^3/ul (0.0-0.5); EOSINOPHILS % 2.4 % (0.0-7.0); HEMATOCRIT 37.1 % (42.0-52.0); HEMOGLOBIN 12.7 g/dl (14.0-18.0); LYMPHOCYTES # 2.1 10^3/ul (0.8-2.9); MEAN CORPUSCULAR HEMOGLOBIN 31.4 pg (29.0-33.0); MEAN CORPUSCULAR HGB CONC 34.2 g/dl (32.0-37.0); MEAN CORPUSCULAR VOLUME 91.6 fl (82.0-101.0); MEAN PLATELET VOLUME 10.1 fl (7.4-10.4); MONOCYTE # 1.3 10^3/ul (0.3-0.9); MONOCYTES % 13.9 % (0.0-11.0); NEUTROPHIL # 5.2 10^3/ul (1.6-7.5); NEUTROPHILS % 57.7 % (39.0-77.0); PLATELET COUNT 290 10^3/UL (140-415); RED BLOOD COUNT 4.05 10^6/ul (4.70-6.10); RED CELL DISTRIBUTION WIDTH 12.6 % (11.5-14.5)
[2018-07-08 08:50] LABS: ALANINE AMINOTRANSFERASE 43 IU/L (13-69); ALBUMIN 3.5 g/dl (3.3-4.9); ALBUMIN/GLOBULIN RATIO 1.06; ALKALINE PHOSPHATASE 62 IU/L (42-121); AMYLASE 71 U/L (11-123); ANION GAP 12 (5-13); ASPARTATE AMINO TRANSFERASE 49 IU/L (15-46); BILIRUBIN,INDIRECT 0.4 mg/dl (0-1.1); BILIRUBIN,TOTAL 0.4 mg/dl (0.2-1.3); BLOOD UREA NITROGEN 5 mg/dl (7-20); CALCIUM 8.5 mg/dl (8.4-10.2); CARBON DIOXIDE 28 mmol/L (21-31); CHLORIDE 93 mmol/L (97-110); CREATININE 0.49 mg/dl (0.61-1.24); GLUCOSE 93 mg/dl (70-220); LIPASE 99 U/L (23-300); SODIUM 133 mmol/L (135-144); TOTAL PROTEIN 6.8 g/dl (6.1-8.1)
[2018-07-08 08:54] LABS: INR 0.96; PROTIME 12.9 Sec (11.9-14.9)
[2018-07-08 08:55] LABS: ADD UMIC YES; PARTIAL THROMBOPLASTIN TIME 33.9 Sec (23.0-35.0); UR ASCORBIC ACID NEGATIVE (NEGATIVE); UR BACTERIA FEW /HPF (NONE SEEN); UR BILIRUBIN (Dip) NEGATIVE (NEGATIVE); UR BLOOD (Dip) NEGATIVE (NEGATIVE); UR CLARITY CLEAR (CLEAR); UR COLOR AMBER (YELLOW); UR GLUCOSE (Dip) NEGATIVE (NEGATIVE); UR KETONES (Dip) 1+ mg/dL (NEGATIVE); UR LEUKOCYTE ESTERASE (Dip) NEGATIVE Leu/ul (NEGATIVE); UR MUCUS MODERATE /HPF (NONE SEEN); UR NITRITE (Dip) POSITIVE (NEGATIVE); UR RBC 3 /HPF (0-5); UR SPECIFIC GRAVITY (Dip) > 1.060 (1.003-1.030); UR TOTAL PROTEIN (Dip) NEGATIVE (NEGATIVE); UR UROBILINOGEN (Dip) 2+ mg/dL (NEGATIVE); UR WBC 1 /HPF (0-5)
[2018-07-08 09:02] LABS: TROPONIN-I < 0.012 ng/ml (0.000-0.120)
[2018-07-08] MEDS: POTASSIUM CHLORIDE (SR) 20 MEQ TAB PO (09:21)
[2018-07-08] MEDS: HYDROmorphONE 1 MG/ML SYG IV ×2 (09:26→09:36)
== END 2018-07-08 10:28 | disposition home or self-care (01) ==
LOC: E/R 07:10
DX: G89.18 Other acute postprocedural pain (principal); E03.9 Hypothyroidism, unspecified; I10 Essential (primary) hypertension; R40.2252 Coma scale, best verbal response, oriented, at arrival to emergency department; R40.2362 Coma scale, best motor response, obeys commands, at arrival to emergency department; R40.2142 Coma scale, eyes open, spontaneous, at arrival to emergency department; R10.9 Unspecified abdominal pain
CPT/HCPCS: 74177; 80053; 81001; 82150; 83690; 84484; 85025; 85610; 85730; 87086; 93005; 96374; 96375; 96376; 99285-25

== ENCOUNTER 2018-08-06 10:42 | Observation (INO) | payer MEDICARE, OTHER ==
[2018-08-06] MEDS: CEFTRIAXONE 1 GM/NS 50 ML IVPB (08:00)
[2018-08-06] MEDS ORDERED: CEFAZOLIN 1 GM INJ (12:11)
[2018-08-06] MEDS ORDERED: ROCURONIUM 50 MG INJ (12:11)
[2018-08-06] MEDS ORDERED: MIDAZOLAM 1 MG/ML 2 ML INJ (12:11)
[2018-08-06] MEDS ORDERED: FENTAnyl 50 MCG/ML VIAL (12:11)
[2018-08-06] MEDS ORDERED: PROPOFOL 20 ML (12:11)
[2018-08-06] MEDS ORDERED: ONDANSETRON 4 MG INJ (12:48)
[2018-08-06] MEDS ORDERED: METOCLOPRAMIDE 10 MG INJ (12:48)
[2018-08-06] MEDS ORDERED: DEXAMETHASONE 4 MG/ML 5 ML INJ (12:48)
[2018-08-06] MEDS ORDERED: PHENYLephrine 10 MG INJ (13:31)
[2018-08-06] MEDS ORDERED: GLYCOPYRROLATE 0.4 MG INJ (14:21)
[2018-08-06] MEDS ORDERED: NEOSTIGMINE 3 MG/3 ML SYRINGE (14:21)
[2018-08-06] MEDS ORDERED: HYDROmorphONE 1 MG/5 ML IV SYRINGE IV ×3 (15:29→15:30)
[2018-08-06] MEDS ORDERED: ONDANSETRON 4 MG INJ IV ×2 (15:30→17:00)
[2018-08-06] MEDS ORDERED: FENTAnyl 50 MCG/ML VIAL IV ×3 (15:30)
[2018-08-06] MEDS: HYDROmorphONE 1 MG/5 ML IV SYRINGE IV ×2 (15:33→15:59)
[2018-08-06] MEDS ORDERED: morphine 2 MG INJ IV (17:00)
[2018-08-06] MEDS ORDERED: MELATONIN 5 MG TABLET PO (17:00)
[2018-08-06] MEDS ORDERED: NACL 0.9% 3 ML SYG IV ×2 (17:00)
[2018-08-06] MEDS ORDERED: ACETAMINOPHEN 325 MG TAB PO (17:00)
[2018-08-06] MEDS ORDERED: SENNA TAB PO (17:00)
[2018-08-06] MEDS: DEXTROSE 5%-0.45% NACL 1,000 ML IV (17:23)
[2018-08-06] MEDS: HYDROCODONE/APAP (5/325) TAB PO (19:03)
[2018-08-06] MEDS: PHENYTOIN 100 MG CAP PO (20:37)
[2018-08-06] MEDS: GEMFIBROZIL 600 MG TAB PO (20:37)
[2018-08-06] MEDS: SACCHAROMYCES BOULARDII 250 MG CAP PO (20:37)
[2018-08-06] MEDS ORDERED: PHENYTOIN 100 MG PO (21:00)
[2018-08-07] MEDS: HYDROCODONE/APAP (5/325) TAB PO (04:13)
[2018-08-07 05:28] LABS: ADD MAN DIFF? NO
[2018-08-07 05:29] LABS: BASOPHILS % 0.4 % (0.0-2.0); EOSINOPHILS # 0.1 10^3/ul (0.0-0.5); EOSINOPHILS % 0.9 % (0.0-7.0); HEMATOCRIT 34.6 % (42.0-52.0); HEMOGLOBIN 11.1 g/dl (14.0-18.0); LYMPHOCYTES # 3.4 10^3/ul (0.8-2.9); LYMPHOCYTES % 32.2 % (15.0-51.0); MEAN CORPUSCULAR HEMOGLOBIN 30.7 pg (29.0-33.0); MEAN CORPUSCULAR HGB CONC 32.1 g/dl (32.0-37.0); MEAN CORPUSCULAR VOLUME 95.8 fl (82.0-101.0); MEAN PLATELET VOLUME 10.1 fl (7.4-10.4); MONOCYTE # 1.1 10^3/ul (0.3-0.9); MONOCYTES % 10.2 % (0.0-11.0); NEUTROPHIL # 5.9 10^3/ul (1.6-7.5); NEUTROPHILS % 55.8 % (39.0-77.0); PLATELET COUNT 328 10^3/UL (140-415); RED BLOOD COUNT 3.61 10^6/ul (4.70-6.10); RED CELL DISTRIBUTION WIDTH 13.6 % (11.5-14.5)
[2018-08-07 05:29] LABS: WHITE BLOOD COUNT 10.6 10^3/ul (4.8-10.8)
[2018-08-07 07:03] LABS: HEMOGLOBIN A1C 5.4 % (0-5.9)
[2018-08-07] MEDS: PHENYTOIN 100 MG CAP PO ×2 (09:57→14:06)
[2018-08-07] MEDS: SACCHAROMYCES BOULARDII 250 MG CAP PO (09:57)
[2018-08-07] MEDS: GEMFIBROZIL 600 MG TAB PO (09:57)
[2018-08-07] MEDS: LEVOTHYROXINE 150 MCG TAB PO (09:57)
[2018-08-07] MEDS: DEXTROSE 5%-0.45% NACL 1,000 ML IV (10:55)
== END 2018-08-07 14:38 | disposition home or self-care (01) ==
LOC: SDS 10:42 → REC 14:58 → MS1 16:30
PROVIDERS: Urology
DX: N40.1 Benign prostatic hyperplasia with lower urinary tract symptoms (principal); R33.8 Other retention of urine; G40.909 Epilepsy, unspecified, not intractable, without status epilepticus; E03.9 Hypothyroidism, unspecified
CPT/HCPCS: 52601; 83036; 85025; 88305

== ENCOUNTER 2019-02-13 09:15 | Emergency (ER) | payer MEDICARE, OTHER ==
[2019-02-13] MEDS: ACETAMINOPHEN 500 MG TAB PO (09:53)
== END 2019-02-13 11:14 | disposition home or self-care (01) ==
LOC: E/R 09:15
DX: R51 Headache (principal); I10 Essential (primary) hypertension; E03.9 Hypothyroidism, unspecified; R40.2142 Coma scale, eyes open, spontaneous, at arrival to emergency department; R40.2252 Coma scale, best verbal response, oriented, at arrival to emergency department; R40.2362 Coma scale, best motor response, obeys commands, at arrival to emergency department
CPT/HCPCS: 70450; 99284-25

== ENCOUNTER 2019-02-18 19:54 | Inpatient (IN) | payer MEDICARE, OTHER ==
[2019-02-18 20:28] LABS: ADD MAN DIFF? NO
[2019-02-18 20:29] LABS: BASOPHILS % 0.2 % (0.0-2.0); EOSINOPHILS % 0.3 % (0.0-7.0); HEMATOCRIT 36.8 % (42.0-52.0); LYMPHOCYTES # 2.6 10^3/ul (0.8-2.9); LYMPHOCYTES % 27.4 % (15.0-51.0); MEAN CORPUSCULAR HEMOGLOBIN 31.5 pg (29.0-33.0); MEAN CORPUSCULAR HGB CONC 35.3 g/dl (32.0-37.0); MEAN CORPUSCULAR VOLUME 89.1 fl (82.0-101.0); MEAN PLATELET VOLUME 9.7 fl (7.4-10.4); MONOCYTE # 0.9 10^3/ul (0.3-0.9); MONOCYTES % 9.8 % (0.0-11.0); NEUTROPHIL # 5.8 10^3/ul (1.6-7.5); NEUTROPHILS % 61.8 % (39.0-77.0); PLATELET COUNT 236 10^3/UL (140-415); RED BLOOD COUNT 4.13 10^6/ul (4.70-6.10); RED CELL DISTRIBUTION WIDTH 12.5 % (11.5-14.5)
[2019-02-18 20:29] LABS: WHITE BLOOD COUNT 9.4 10^3/ul (4.8-10.8)
[2019-02-18] MEDS: SOD CHLORIDE 0.9% 500 ML IV (20:38)
[2019-02-18 20:47] LABS: ALANINE AMINOTRANSFERASE 21 IU/L (13-69); ALBUMIN 4.1 g/dl (3.3-4.9); ALBUMIN/GLOBULIN RATIO 1.13; ALKALINE PHOSPHATASE 84 IU/L (42-121); ANION GAP 9 (5-13); ASPARTATE AMINO TRANSFERASE 19 IU/L (15-46); BILIRUBIN,INDIRECT 0.3 mg/dl (0-1.1); BILIRUBIN,TOTAL 0.3 mg/dl (0.2-1.3); BLOOD UREA NITROGEN 5 mg/dl (7-20); CALCIUM 8.9 mg/dl (8.4-10.2); CARBON DIOXIDE 25 mmol/L (21-31); CHLORIDE 90 mmol/L (97-110); CREATININE 0.53 mg/dl (0.61-1.24); GLUCOSE 109 mg/dl (70-220); POTASSIUM 4.1 mmol/L (3.5-5.1); SODIUM 124 mmol/L (135-144); TOTAL PROTEIN 7.7 g/dl (6.1-8.1)
[2019-02-18 20:58] LABS: ADD UMIC YES; UR ASCORBIC ACID NEGATIVE (NEGATIVE); UR BILIRUBIN (Dip) NEGATIVE (NEGATIVE); UR BLOOD (Dip) 1+ mg/dL (NEGATIVE); UR CLARITY CLEAR (CLEAR); UR COLOR STRAW (YELLOW); UR GLUCOSE (Dip) NEGATIVE (NEGATIVE); UR KETONES (Dip) 1+ mg/dL (NEGATIVE); UR LEUKOCYTE ESTERASE (Dip) NEGATIVE Leu/ul (NEGATIVE); UR NITRITE (Dip) NEGATIVE (NEGATIVE); UR RBC 2 /HPF (0-5); UR SPECIFIC GRAVITY (Dip) 1.006 (1.003-1.030); UR TOTAL PROTEIN (Dip) NEGATIVE (NEGATIVE); UR UROBILINOGEN (Dip) NEGATIVE (NEGATIVE); UR WBC 2 /HPF (0-5)
[2019-02-18] MEDS ORDERED: DOCUSATE SODIUM 100 MG CAP PO (22:00)
[2019-02-18] MEDS ORDERED: ONDANSETRON 4 MG INJ IV (22:00)
[2019-02-18] MEDS ORDERED: BISACODYL (EC) 5 MG TAB PO (22:00)
[2019-02-18] MEDS ORDERED: ACETAMINOPHEN 325 MG TAB PO ×2 (22:00)
[2019-02-18] MEDS ORDERED: NACL 0.9% 3 ML SYG IV (22:00)
[2019-02-18 22:20] LABS: OSMOLALITY 252 mOsm/kg (280-295)
[2019-02-18 22:21] LABS: OSMOLALITY,URINE 252 mOsm/kg (250-1200)
[2019-02-18 22:23] LABS: SODIUM,URINE RANDOM 45 mmol/L (30-90)
[2019-02-18] MEDS: SOD CHLORIDE 0.9% 1,000 ML IV (22:39)
[2019-02-19 01:19] LABS: ANION GAP 6 (5-13); BLOOD UREA NITROGEN 4 mg/dl (7-20); CALCIUM 8.7 mg/dl (8.4-10.2); CARBON DIOXIDE 26 mmol/L (21-31); CHLORIDE 96 mmol/L (97-110); CREATININE 0.51 mg/dl (0.61-1.24); GLUCOSE 122 mg/dl (70-220); POTASSIUM 3.7 mmol/L (3.5-5.1); SODIUM 128 mmol/L (135-144)
[2019-02-19] MEDS: SODIUM CHLORIDE 0.45% 500 ML BAG IV* (03:00)
[2019-02-19 05:22] LABS: ADD MAN DIFF? NO
[2019-02-19 05:24] LABS: BASOPHILS % 0.3 % (0.0-2.0); EOSINOPHILS # 0.1 10^3/ul (0.0-0.5); EOSINOPHILS % 0.8 % (0.0-7.0); HEMATOCRIT 36.8 % (42.0-52.0); HEMOGLOBIN 12.8 g/dl (14.0-18.0); LYMPHOCYTES # 2.4 10^3/ul (0.8-2.9); MEAN CORPUSCULAR HEMOGLOBIN 31.2 pg (29.0-33.0); MEAN CORPUSCULAR HGB CONC 34.8 g/dl (32.0-37.0); MEAN CORPUSCULAR VOLUME 89.8 fl (82.0-101.0); MONOCYTE # 0.8 10^3/ul (0.3-0.9); MONOCYTES % 11.2 % (0.0-11.0); NEUTROPHIL # 3.9 10^3/ul (1.6-7.5); NEUTROPHILS % 54.3 % (39.0-77.0); PLATELET COUNT 243 10^3/UL (140-415); RED CELL DISTRIBUTION WIDTH 12.5 % (11.5-14.5)
[2019-02-19 05:24] LABS: WHITE BLOOD COUNT 7.1 10^3/ul (4.8-10.8)
[2019-02-19 05:56] LABS: ANION GAP 7 (5-13); BLOOD UREA NITROGEN 5 mg/dl (7-20); CALCIUM 8.6 mg/dl (8.4-10.2); CARBON DIOXIDE 24 mmol/L (21-31); CHLORIDE 98 mmol/L (97-110); CREATININE 0.54 mg/dl (0.61-1.24); GLUCOSE 92 mg/dl (70-220); SODIUM 129 mmol/L (135-144)
[2019-02-19 05:57] LABS: MAGNESIUM 2.2 mg/dl (1.7-2.5)
[2019-02-19 05:57] LABS: CHOL/HDL RATIO 3.8 RATIO; CHOLESTEROL 173 mg/dl (100-200); HDL CHOLESTEROL 45 mg/dl (31-75); LDL CHOLESTEROL,CALCULATED 111 mg/dl; TRIGLYCERIDES 86 mg/dl (0-149)
[2019-02-19] MEDS: LEVOTHYROXINE 125 MCG TAB PO (06:20)
[2019-02-19 06:35] LABS: HEMOGLOBIN A1C 5.1 % (0-5.9)
[2019-02-19 06:36] LABS: PHENYTOIN (DILANTIN) 7.2 ug/ml (10.0-20.0)
[2019-02-19] MEDS: PHENYTOIN 100 MG CAP PO ×3 (08:51→20:46)
[2019-02-19] MEDS: GEMFIBROZIL 600 MG TAB PO ×2 (08:51→20:46)
[2019-02-19 09:21] LABS: ANION GAP 9 (5-13); BLOOD UREA NITROGEN 4 mg/dl (7-20); CALCIUM 8.9 mg/dl (8.4-10.2); CARBON DIOXIDE 23 mmol/L (21-31); CHLORIDE 98 mmol/L (97-110); CREATININE 0.56 mg/dl (0.61-1.24); GLUCOSE 101 mg/dl (70-220); POTASSIUM 4.1 mmol/L (3.5-5.1); SODIUM 130 mmol/L (135-144)
[2019-02-19 12:52] LABS: ANION GAP 11 (5-13); BLOOD UREA NITROGEN 5 mg/dl (7-20); CALCIUM 8.8 mg/dl (8.4-10.2); CARBON DIOXIDE 23 mmol/L (21-31); CHLORIDE 97 mmol/L (97-110); CREATININE 0.53 mg/dl (0.61-1.24); GLUCOSE 112 mg/dl (70-220); POTASSIUM 3.9 mmol/L (3.5-5.1); SODIUM 131 mmol/L (135-144)
[2019-02-19] MEDS: PHENYTOIN 100 MG INJ IV (13:48)
[2019-02-19 16:50] LABS: OSMOLALITY,URINE 456 mOsm/kg (250-1200)
[2019-02-19 19:44] LABS: ANION GAP 8 (5-13); BLOOD UREA NITROGEN 6 mg/dl (7-20); CALCIUM 8.5 mg/dl (8.4-10.2); CARBON DIOXIDE 24 mmol/L (21-31); CHLORIDE 95 mmol/L (97-110); CREATININE 0.55 mg/dl (0.61-1.24); GLUCOSE 121 mg/dl (70-220); SODIUM 127 mmol/L (135-144)
[2019-02-20 05:21] LABS: ADD MAN DIFF? NO
[2019-02-20 05:32] LABS: WHITE BLOOD COUNT 8.8 10^3/ul (4.8-10.8)
[2019-02-20 05:32] LABS: BASOPHILS % 0.3 % (0.0-2.0); EOSINOPHILS # 0.1 10^3/ul (0.0-0.5); EOSINOPHILS % 1.1 % (0.0-7.0); HEMATOCRIT 37.8 % (42.0-52.0); HEMOGLOBIN 12.9 g/dl (14.0-18.0); LYMPHOCYTES % 34.5 % (15.0-51.0); MEAN CORPUSCULAR HEMOGLOBIN 31.3 pg (29.0-33.0); MEAN CORPUSCULAR HGB CONC 34.1 g/dl (32.0-37.0); MEAN CORPUSCULAR VOLUME 91.7 fl (82.0-101.0); MONOCYTES % 10.9 % (0.0-11.0); NEUTROPHIL # 4.6 10^3/ul (1.6-7.5); NEUTROPHILS % 52.5 % (39.0-77.0); PLATELET COUNT 235 10^3/UL (140-415); RED BLOOD COUNT 4.12 10^6/ul (4.70-6.10); RED CELL DISTRIBUTION WIDTH 13.1 % (11.5-14.5)
[2019-02-20 05:50] LABS: ANION GAP 6 (5-13); BLOOD UREA NITROGEN 5 mg/dl (7-20); CALCIUM 8.8 mg/dl (8.4-10.2); CARBON DIOXIDE 26 mmol/L (21-31); CHLORIDE 96 mmol/L (97-110); CREATININE 0.54 mg/dl (0.61-1.24); GLUCOSE 88 mg/dl (70-220); MAGNESIUM 2.1 mg/dl (1.7-2.5); PHOSPHORUS 3.1 mg/dl (2.5-4.9); POTASSIUM 4.4 mmol/L (3.5-5.1); SODIUM 128 mmol/L (135-144)
[2019-02-20] MEDS: LEVOTHYROXINE 125 MCG TAB PO (06:17)
[2019-02-20 06:40] LABS: PHENYTOIN (DILANTIN) 3.3 ug/ml (10.0-20.0)
[2019-02-20] MEDS: PHENYTOIN 100 MG CAP PO ×3 (09:15→21:06)
[2019-02-20] MEDS: GEMFIBROZIL 600 MG TAB PO ×2 (09:15→21:06)
[2019-02-20 12:20] LABS: SODIUM 125 mmol/L (135-144)
[2019-02-20 12:26] LABS: PHENYTOIN (DILANTIN) 8.4 ug/ml (10.0-20.0)
[2019-02-20] MEDS: SODIUM CHLORIDE 1 GM TAB PO ×2 (14:49→21:07)
[2019-02-20] MEDS: PHENYTOIN 100 MG INJ IV (16:04)
[2019-02-20 18:36] LABS: SODIUM 126 mmol/L (135-144)
[2019-02-20] MEDS: ONDANSETRON 4 MG INJ IV (21:56)
[2019-02-20 23:25] LABS: SODIUM 126 mmol/L (135-144)
[2019-02-21 01:50] LABS: ADD MAN DIFF? NO
[2019-02-21 01:52] LABS: BASOPHILS % 0.2 % (0.0-2.0); EOSINOPHILS # 0.1 10^3/ul (0.0-0.5); EOSINOPHILS % 0.8 % (0.0-7.0); HEMATOCRIT 38.4 % (42.0-52.0); HEMOGLOBIN 13.1 g/dl (14.0-18.0); LYMPHOCYTES # 3.1 10^3/ul (0.8-2.9); LYMPHOCYTES % 37.7 % (15.0-51.0); MEAN CORPUSCULAR HEMOGLOBIN 30.8 pg (29.0-33.0); MEAN CORPUSCULAR HGB CONC 34.1 g/dl (32.0-37.0); MEAN CORPUSCULAR VOLUME 90.1 fl (82.0-101.0); MEAN PLATELET VOLUME 9.6 fl (7.4-10.4); MONOCYTE # 0.9 10^3/ul (0.3-0.9); MONOCYTES % 10.6 % (0.0-11.0); NEUTROPHIL # 4.1 10^3/ul (1.6-7.5); NEUTROPHILS % 49.9 % (39.0-77.0); PLATELET COUNT 247 10^3/UL (140-415); RED BLOOD COUNT 4.26 10^6/ul (4.70-6.10)
[2019-02-21 01:52] LABS: WHITE BLOOD COUNT 8.2 10^3/ul (4.8-10.8)
[2019-02-21 02:11] LABS: SODIUM 128 mmol/L (135-144)
[2019-02-21 02:14] LABS: ANION GAP 8 (5-13); BLOOD UREA NITROGEN 6 mg/dl (7-20); CALCIUM 8.9 mg/dl (8.4-10.2); CARBON DIOXIDE 24 mmol/L (21-31); CHLORIDE 95 mmol/L (97-110); CREATININE 0.55 mg/dl (0.61-1.24); GLUCOSE 95 mg/dl (70-220); PHOSPHORUS 3.5 mg/dl (2.5-4.9); POTASSIUM 4.4 mmol/L (3.5-5.1); SODIUM 127 mmol/L (135-144)
[2019-02-21] MEDS: LEVOTHYROXINE 125 MCG TAB PO (06:39)
[2019-02-21] MEDS: SODIUM CHLORIDE 1 GM TAB PO ×3 (09:19→21:34)
[2019-02-21] MEDS: GEMFIBROZIL 600 MG TAB PO ×2 (09:19→21:34)
[2019-02-21] MEDS: DEMECLOCYCLINE 150 MG TAB PO ×2 (09:20→21:34)
[2019-02-21] MEDS: PHENYTOIN 100 MG CAP PO ×3 (09:20→21:34)
[2019-02-21] MEDS: ONDANSETRON 4 MG INJ IV (13:41)
[2019-02-21 13:59] LABS: PHENYTOIN (DILANTIN) 8.1 ug/ml (10.0-20.0)
[2019-02-22 05:03] LABS: ADD MAN DIFF? NO
[2019-02-22 05:10] LABS: BASOPHILS % 0.3 % (0.0-2.0); EOSINOPHILS # 0.2 10^3/ul (0.0-0.5); EOSINOPHILS % 1.8 % (0.0-7.0); HEMATOCRIT 40.6 % (42.0-52.0); HEMOGLOBIN 13.6 g/dl (14.0-18.0); LYMPHOCYTES # 3.4 10^3/ul (0.8-2.9); LYMPHOCYTES % 38.3 % (15.0-51.0); MEAN CORPUSCULAR HEMOGLOBIN 30.9 pg (29.0-33.0); MEAN CORPUSCULAR HGB CONC 33.5 g/dl (32.0-37.0); MEAN CORPUSCULAR VOLUME 92.3 fl (82.0-101.0); MEAN PLATELET VOLUME 9.6 fl (7.4-10.4); MONOCYTE # 0.9 10^3/ul (0.3-0.9); MONOCYTES % 10.7 % (0.0-11.0); NEUTROPHIL # 4.2 10^3/ul (1.6-7.5); NEUTROPHILS % 48.2 % (39.0-77.0); PLATELET COUNT 273 10^3/UL (140-415); RED CELL DISTRIBUTION WIDTH 13.2 % (11.5-14.5)
[2019-02-22 05:10] LABS: WHITE BLOOD COUNT 8.8 10^3/ul (4.8-10.8)
[2019-02-22 05:49] LABS: ANION GAP 6 (5-13); BLOOD UREA NITROGEN 8 mg/dl (7-20); CALCIUM 9.2 mg/dl (8.4-10.2); CARBON DIOXIDE 29 mmol/L (21-31); CHLORIDE 96 mmol/L (97-110); CREATININE 0.73 mg/dl (0.61-1.24); GLUCOSE 89 mg/dl (70-220); MAGNESIUM 2.2 mg/dl (1.7-2.5); PHOSPHORUS 3.8 mg/dl (2.5-4.9); POTASSIUM 5.2 mmol/L (3.5-5.1); SODIUM 131 mmol/L (135-144)
[2019-02-22] MEDS: LEVOTHYROXINE 125 MCG TAB PO (06:01)
[2019-02-22] MEDS: GEMFIBROZIL 600 MG TAB PO (09:16)
[2019-02-22] MEDS: DEMECLOCYCLINE 150 MG TAB PO (09:16)
[2019-02-22] MEDS: SODIUM CHLORIDE 1 GM TAB PO (09:16)
[2019-02-22] MEDS: PHENYTOIN 100 MG CAP PO (09:17)
== END 2019-02-22 11:54 | disposition home or self-care (01) | DRG 645 ==
LOC: E/R 19:54 → MS1 21:31
DX: E22.2 Syndrome of inappropriate secretion of antidiuretic hormone (principal); E86.0 Dehydration; G40.909 Epilepsy, unspecified, not intractable, without status epilepticus; I10 Essential (primary) hypertension; E03.9 Hypothyroidism, unspecified; E78.5 Hyperlipidemia, unspecified
CPT/HCPCS: 36415; 80048; 80053; 80061; 80185; 81001; 83036; 83735; 83930; 83935; 84100; 84295; 84300; 84443; 85025; 97161; 97166; 99285-25

== ENCOUNTER 2019-03-01 22:17 | Emergency (ER) | payer MEDICARE, OTHER ==
[2019-03-01] MEDS: DIPHENHYDRAMINE 50 MG CAP PO (23:47)
== END 2019-03-02 00:02 | disposition home or self-care (01) ==
LOC: FTE 03-02 00:02
DX: J00 Acute nasopharyngitis [common cold] (principal)
CPT/HCPCS: 99282